=== PATIENT | female | born 2000 | race Caucasian/White ===

== ENCOUNTER 2025-03-12 14:14 | Emergency (ER) | payer MEDICAID ==
[~2025-03-12] VITALS: Ht 167.6 cm; Wt 65.7 kg
[2025-03-12 14:15] VITALS: O2SAT 99
[2025-03-12] MEDS: ACETAMINOPHEN 325MG TABLET PO ONE (16:58)
[2025-03-12] MEDS: KETOROLAC 30MG/ML VIAL IM ONE (16:58)
[2025-03-12] MEDS ORDERED: ACET-2708 MT (16:59)
[2025-03-12] MEDS ORDERED: LIDO700A15 TP (16:59)
[2025-03-12 17:16] VITALS: BP 109/58; PULSE 61; RESP 4; TEMP 36.7; O2SAT 100
== END 2025-03-12 17:18 | disposition home or self-care (01) ==
LOC: ER 14:14
DX: M54.50 Low back pain, unspecified (principal)
CPT/HCPCS: 99283; 81025; 96372; J1885